=== PATIENT | male | born 1955 | race Caucasian/White ===

== ENCOUNTER 2016-10-22 10:59 | Outpatient (CLI) | payer BC ==
[2016-10-22 12:54] LABS: #Eosinphils 0.1 thou/uL (0.0-0.7); #Lymphocytes 1.2 thou/uL (1.20-3.40); #Monocytes 0.6 thou/uL (0.11-0.59); %Basophils 0.9 % (0.0-1.0); %Eosinophils 2.3 % (0.0-10.0); %Lymphocytes 24.9 % (21.0-51.0); %Monocytes 11.9 % (0.0-10.0); Hemoglobin 13.3 g/dL (14.0-18.0); Mean Corpuscular HGB CONC 35.3 g/dL (32.0-36.0); Mean Corpuscular Hemoglobin 31.3 pg (27.0-31.0); Mean Corpuscular Volume 88.5 fl (80.0-94.0); Mean Platelet Volume 9.2 fL (7.4-10.4); Platelet Count 203 thou/uL (130-400); RBC Distribution Width 10.7 % (11.5-14.5); Red Blood Cell (RBC) Count 4.25 mill/uL (4.70-6.10)
[2016-10-22 13:12] LABS: ALT (SGPT) 18 U/L (0-55); AST (SGOT) 18 U/L (5-34); Albumin 4.1 g/dL (3.4-4.8); Alkaline Phosphatase 67 U/L (40-150); Anion Gap 13 mmol/L (10-20); BUN (Urea Nitrogen) 11 mg/dL (8.4-25.7); Bilirubin, Total 0.8 mg/dL (0.2-1.2); Calc. Creatinine Clearance 0 mL/min (70-130); Calcium 9.3 mg/dL (7.8-10.44); Carbon Dioxide 27 mmol/L (23-31); Cardiac Risk 2.8 (Less than 4.5); Chloride 103 mmol/L (98-107); Cholesterol 126 mg/dL (< 200 Desired); Estimated GFR-MDRD 90; Glucose 99 mg/dL (80-115); HDL Cholesterol 45 mg/dL (>60 Neg Risk); LDL Cholesterol, Calculated 65 mg/dL; Potassium 4.1 mmol/L (3.5-5.1); Protein, Total 7.1 g/dL (5.8-8.1); Sodium 139 mmol/L (136-145); Triglycerides 81 mg/dL (Less than 150)
[2016-10-22 13:22] LABS: Hemoglobin A1c 5.6 % (4.0-6.0)
[2016-10-22 15:18] LABS: Bilirubin Negative (Negative); Blood, Urine Trace (Negative); Clarity Clear (Clear); Glucose, Urine (Dipstick) Negative (Negative); Leukocyte Negative (Negative); Nitrite Negative (Negative); Protein, Urine (Dipstick) Negative (Neg-Trace); Specific Gravity, Urine 1.015 (1.005-1.030); Urobilinogen 0.2 mg/dL (0.2-1.0)
[2016-10-22 16:19] LABS: RBC/HPF 0-3 HPF (0-3)
[2016-10-22 18:08] LABS: Creatinine, Urine 31.41 mg/dL (63-166); Microalbumin Urine Less than 1.0 mg/dL (0.5-50.0); Microalbumin/Creat Ratio 31.8 mg/g (Less than 30)
== END 2016-10-22 11:00 | disposition home or self-care (01) ==
LOC: NAVSJIPCSP 10:59
PROVIDERS: ATTEND Internal Medicine
DX: I10 Essential (primary) hypertension (principal); E11.9 Type 2 diabetes mellitus without complications
CPT/HCPCS: 36415; 80053; 80061; 81003; 81015; 82043; 83036; 84443; 85025

== ENCOUNTER 2018-11-03 07:35 | Outpatient (CLI) | payer BC ==
--- NOTE | 2018-11-03 10:05 | CT ---
EXAM: CT chest, abdomen, and pelvis with IV contrast: HISTORY: Weight loss. Loss of appetite. COMPARISON: Noncontrast CT abdomen and pelvis on 05/05/2004. FINDINGS: CT THORAX: Lungs: No consolidation, suspicious pulmonary nodule, or mass. Pleura: No pleural effusion is identified. There is a small amount of herniation of intra-abdominal f at at the posterior medial aspect of each lung base. Lymph nodes: No lymphadenopathy. Mediastinum: The thoracic aorta is normal in caliber without evidence of an aortic dissection. There is no evidence of lymphadenopathy. Chest wall: No abnormalities CT ABDOMEN AND PELVIS: Liver: A subcentimeter too small to characterize hypodense lesion is seen in the right hepatic lobe. There is an additional approximately 11 mm hypodense lesion in the caudate lobe of liver which is difficult to characterize as well.. Gallbladder: Within normal limits. \ Pancreas: Within normal limits. Spleen: Within normal limits. Adrenal glands: Within normal limits. Kidneys:2 nonobstructing calculi are seen in the superior pole right kidney largest measuring 5 mm wi th 2 nonobstructing calculi seen in the midportion inferior pole left kidney. Largest calculus inferior pole left kidney measures 9 mm with calculus in the midportion left kidney measuring 8 mm martínez bcentimeter too small to characterize hypodense lesions are seen in each kidney. No enhancing renal mass is identified. Urinary Bladder: The urinary bladder is unremarkable. Reproductive organs: Within normal limits for patient's age. Bowel: The small bowel is normal in caliber. The appendix is not visualized, but there are no seconda ry signs to suggest appendicitis. Adenopathy:No lymphadenopathy within the abdomen or pelvis. Peritoneum: No free fluid or fluid collection is seen. No free intraperitoneal gas is identified. Abdominal wall: There is a small fat-containing umbilical hernia. Osseous structures: Degenerative changes are seen in the lower lumbar spine. IMPRESSION: 1. Subcentimeter too small to characterize hypodense lesions in the liver. 2. Nonobstructing bilateral renal calculi. 3. Subcentimeter too small to characterize hypodense lesions in each kidney. 4. No pulmonary nodule or mass is visualized. 5. Small fat-containing umbilical hernia.
== END 2018-11-03 07:36 | disposition home or self-care (01) ==
LOC: NAV CT 07:35
PROVIDERS: ATTEND Internal Medicine
DX: R63.4 Abnormal weight loss (principal); N20.0 Calculus of kidney; K42.9 Umbilical hernia without obstruction or gangrene; R93.421 Abnormal radiologic findings on diagnostic imaging of right kidney; R93.422 Abnormal radiologic findings on diagnostic imaging of left kidney; R93.2 Abnormal findings on diagnostic imaging of liver and biliary tract
CPT/HCPCS: 71260; 74177